=== PATIENT | female | born 1935 | race Caucasian/White ===

== ENCOUNTER 2018-04-13 03:56 | Outpatient (CLI) | payer SELFPAY ==
[~2018-04-13 03:56] MED LIST: BENA20TA2 PO; MAX25Tt PO; MELO-100 PO; NITR50CA PO; SYN0.025T PO
[2018-04-13 08:28] LABS: HEMOGLOBIN A1C 5.3 % (4.5-6.2)
[2018-04-13 08:43] LABS: CHOL/HDL RATIO 2.93 (0.00-4.99)
== END 2018-04-13 23:59 | disposition home or self-care (01) ==
LOC: HW HEART 03:56
DX: Z13.6 Encounter for screening for cardiovascular disorders (principal)
CPT/HCPCS: 36415

== ENCOUNTER 2018-04-15 00:19 | Outpatient (CLI) | payer SELFPAY | END 2018-04-15 23:59 | disposition home or self-care (01) | LOC: HW VAS 00:19 | DX: Z13.6 Encounter for screening for cardiovascular disorders (principal) ==

== ENCOUNTER 2023-06-21 19:12 | Emergency (ER) | payer OTHER, SELFPAY ==
[~2023-06-21] VITALS: Ht 172.7 cm; Wt 63.6 kg
[~2023-06-21 19:12] MED LIST changes: -BENA20TA2 PO; +BENA20TA82 PO
[2023-06-21 19:14] VITALS: BP 184/94; PULSE 76; TEMP 97.9; O2SAT 98
[2023-06-21 19:40] LABS: BASOPHILS # (AUTO) 0.1 X10'3 (0-0.2); BASOPHILS % (AUTO) 1.2 % (0-1); EOSINOPHILS # (AUTO) 0.3 X10'3 (0-0.9); EOSINOPHILS % (AUTO) 5.6 % (0-6); HEMATOCRIT 43.1 % (35.0-45.0); HEMOGLOBIN 14.5 g/dl (12.0-16.0); LYMPHOCYTES # (AUTO) 1.8 X10'3 (1.1-4.8); LYMPHOCYTES % (AUTO) 31.4 % (21-51); MEAN CORPUSCULAR HEMOGLOBIN 30.9 PG (27.0-31.0); MEAN CORPUSCULAR HGB CONC 33.6 g/dL (33.0-36.5); MEAN CORPUSCULAR VOLUME 91.8 FL (78-98); MEAN PLATELET VOLUME 9.2 FL (7.4-10.4); MONOCYTES # (AUTO) 0.5 X10'3 (0-0.9); MONOCYTES % (AUTO) 9.3 % (2-12); NEUTROPHILS # (AUTO) 3.1 X10'3 (1.8-7.7); NEUTROPHILS % (AUTO) 52.5 % (42-75); PLATELET COUNT 209 X10'3 (140-440); RED BLOOD COUNT 4.69 X10'6 (4.20-5.60); RED CELL DISTRIBUTION WIDTH 13.5 % (11.5-14.5); WHITE BLOOD COUNT 5.8 X10'3 (4.5-11.0)
[2023-06-21 19:43] LABS: ALANINE AMINOTRANSFERASE 26 U/L (12-78); ALBUMIN 3.6 G/DL (3.4-5.0); ALBUMIN/GLOBULIN RATIO 0.9 (1.1-1.5); ALKALINE PHOSPHATASE 72 IU/L (46-116); ANION GAP 8 (8-16); ASPARTATE AMINO TRANSFERASE 27 U/L (10-37); BILIRUBIN,TOTAL 0.4 MG/DL (0.1-1.0); BLOOD UREA NITROGEN 27 MG/DL (7-18); BUN/CREATININE RATIO 23.9 (10.0-20.0); CALCIUM 9.7 MG/DL (8.5-10.1); CHLORIDE 102 MMOL/L (99-107); CREATININE 1.13 MG/DL (0.40-0.90); GLUCOSE 116 MG/DL (70-104); POTASSIUM 3.6 MMOL/L (3.5-5.1); SODIUM 140 MMOL/L (135-145); TOTAL CARBON DIOXIDE 29.8 MMOL/L (24-32); TOTAL PROTEIN 7.4 G/DL (6.4-8.2); eCRCL 35 ML/MIN; eGFR 46 ML/MIN
[2023-06-21 19:49] VITALS: RESP 22
[2023-06-21 19:52] LABS: PRO BRAIN NATRIURETIC PEPTIDE 304 PG/ML (0-450)
[2023-06-21] MEDS ORDERED: mag hydrox/Alum hydrox/simeth 30ml oral suspension PO ONE (21:20)
[2023-06-21] MEDS: LIDOcaine Viscous 15ml cup MM PRN (21:33)
[2023-06-21 21:44] LABS: LIPASE 123 U/L (73-393)
--- NOTE | 2023-06-21 22:19 | NUR ---
US PAGED 2ND ATTEMPT
[2023-06-21] MEDS ORDERED: LANS30CA37 PO (22:31)
--- NOTE | 2023-06-21 22:49 | NUR ---
IV DC'D PT BEING DISCHARGED PT REQUESTED TO GO HOME. PT STATED SHE IS 100% PAIN FREE MD INFORMED
== END 2023-06-21 22:51 | disposition home or self-care (01) ==
LOC: ER 19:13
DX: K29.70 Gastritis, unspecified, without bleeding (principal); I10 Essential (primary) hypertension; E78.00 Pure hypercholesterolemia, unspecified; Z88.8 Allergy status to other drugs, medicaments and biological substances; Z79.899 Other long term (current) drug therapy; Z79.2 Long term (current) use of antibiotics
CPT/HCPCS: 36415; 71045; 80053; 83690; 83880; 84484; 85025; 93005; 99285

== ENCOUNTER 2024-07-03 12:42 | Emergency (ER) | payer OTHER ==
[~2024-07-03] VITALS: Ht 162.6 cm; Wt 64.0 kg
[~2024-07-03 12:42] MED LIST changes: +LANS30CA37 PO
[2024-07-03 15:51] VITALS: BP 152/72; PULSE 78; RESP 16; TEMP 98; O2SAT 95
== END 2024-07-03 15:55 | disposition home or self-care (01) ==
LOC: ER 12:43
DX: H43.393 Other vitreous opacities, bilateral (principal); H35.30 Unspecified macular degeneration; H53.8 Other visual disturbances; I10 Essential (primary) hypertension; E78.00 Pure hypercholesterolemia, unspecified; Z88.8 Allergy status to other drugs, medicaments and biological substances; Z79.899 Other long term (current) drug therapy; Z98.890 Other specified postprocedural states
CPT/HCPCS: 99281

== ENCOUNTER 2025-08-30 09:31 | Outpatient (CLI) | payer OTHER ==
[2025-08-24 14:15] LABS: CREATININE 1.31 MG/DL (0.40-0.90); TOTAL CARBON DIOXIDE 32.1 MMOL/L (24-32); eGFR 38 ML/MIN
--- NOTE | 2025-08-30 12:21 | RADIOLOGY REPORT ---
MRI BRAIN WITH AND WITHOUT CONTRAST Indication: SENSORINEURAL HEARING LOSS Comparison: None Technique: MRI of the brain was performed with and without intravenous contrast. 6 cc of IV contrast was administered intravenously. Findings: Scattered T2/FLAIR hyperintense foci in the periventricular and subcortical white matter, suggestive of chronic microvascular disease. Diffuse parenchymal brain volume loss. There is no evidence of mass, recent hemorrhage, midline shift or abnormal extra-axial fluid collection. There is no abnormal enhancement of the brain or meninges. No masslike enhancement within the internal auditory canal. Symmetric Meckel's cave. No abnormal enhancement along the trigeminal nerves. The major intracranial vessels retain normal flow-voids consistent with their patency. Trace mucosal thickening of the paranasal sinuses. Mastoid air cells are clear. IMPRESSION: No acute intracranial process. No abnormal mass within the internal auditory canals.
[2025-08-30] MEDS ORDERED: GADOTERATE MEGLUMINE 7.5 MMOL/15 ML VIAL IV ONE (19:44)
== END 2025-08-30 23:59 | disposition home or self-care (01) ==
LOC: MRI 09:31
PROVIDERS: ATTEND Otolaryngology
DX: G93.89 Other specified disorders of brain (principal); N28.9 Disorder of kidney and ureter, unspecified; H90.5 Unspecified sensorineural hearing loss; R90.82 White matter disease, unspecified
CPT/HCPCS: 36415; 70553; 80048; A9575